=== PATIENT | male | born 1935 | race Caucasian/White ===

== ENCOUNTER 2017-07-02 16:47 | Inpatient (IN) | payer MEDICARE, BC ==
[~2017-07-02] VITALS: Ht 175.3 cm; Wt 88.6 kg
--- NOTE | ~2017-07-02 | EC ---
PATIENT:JENY BRIAN DATE OF SERVICE: 07/02/17 SEX: M MEDICAL RECORD: [id number] DATE OF : 31 LOCATION:[facility] [place] AGE OF PATIENT: 82 ADMISSION DATE: 07/02/17 REFERRING PHYSICIAN: INTERPRETING PHYSICIAN: CLARISA PAEZ MD ECHOCARDIOGRAM REPORT ECHO CHARGES 4 ECHO COMPLETE Date: 07/03 CLINICAL DIAGNOSIS: CHF ECHOCARDIOGRAPHIC MEASUREMENTS (adult normal given) AC root (d.<3.7cm) 43.0 cm LV Septum d (<1.2 cm> 1.54 cm Valve Excursion 2.2 cm LV Septum (systole) 1.9 cm Left Atria (s.<4.0cm> 3.4 cm LVPW d(<1.2cm) 1.5 cm RV (d.<2.3cm) 3.9 cm LVPW (sytole) 1.9 cm LV diastole(<5.6CM) 5.0 cm MV E-F(>70mm/sec) cm LV systole 4.0 cm LVOT Diameter 2.0 cm MV exc.(>10mm) 1.5 cm Est.ejection fraction (50-75%) % DOPPLER: LVIT cm/sec A 121 cm/sec E 105 cm/sec LA cm/sec RVSP 43 mmHg LVOT cm/sec AOP1/2T m/s Asc. Ao 160 cm/sec RVOT 94 cm/sec RA cm/sec PA 137 cm/sec AV Gradient Peak 10.28mmHg AV Mean 4386 mmHg AV Area 2.7 cm MV Gradient Peak 6.99 mmHg MV Mean 3.28 mmHg MV Area cm COMMENTS: Textile Examiner: Laverne CHAVEZ Hearing Consultant: 2 Dr. Bueno TAPE# PACS Pericardial Effusion N DATE OF SERVICE: PROCEDURE: Echocardiogram. FINDINGS: 1. Left ventricular chamber size is within normal limits. Left ventricular systolic function is normal. Overall ejection fraction estimated at 60%. 2. Left atrium is within normal limits at 3.4 cm. Right atrium and right ventricle chamber sizes are moderately dilated. 3. Valvular structures have normal structure and motion. ECHOCARDIOGRAM REPORT [id number] JENY BRIAN 4. Doppler interrogation reveals only mild tricuspid regurgitation, no other valvular insufficiency or stenosis. Pulmonary systolic pressure is estimated at 34 mmHg. 5. No evidence of pericardial effusion or left ventricular thrombus. TRANSINT:[id number] Voice Confirmation ID: [id number] DOCUMENT ID: [id number] CLARISA PAEZ MD at 1057 CC: [id number] DICTATION DATE: 07/03/17 1300 COLLABORATING SUPERVISING PHYSICIAN: 07/03/17 1329 ADM IN [place] [id number] [place] [address]
[2017-07-02 18:16] LABS: ALBUMIN 3.5 g/dL (3.4-5.0); ALKALINE PHOSPHATASE 77 U/L (46-116); ALT (SGPT) 24 U/L (10-68); BILIRUBIN - TOTAL 0.48 mg/dL (0.2-1.3); CALC OSMOLALITY 275 mosm/kg (275-300); CALCIUM 8.4 mg/dL (8.5-10.1); CARBON DIOXIDE 21.5 mmol/L (21.0-32.0); CHLORIDE - SERUM 101 mmol/L (98-107); CREATININE - SERUM 2.2 mg/dL (0.6-1.3); GLUCOSE 99 mg/dL (74-106); POTASSIUM - SERUM 5.1 mmol/L (3.5-5.1); PROTEIN - SERUM 6.5 g/dL (6.4-8.2); SODIUM 136 mmol/L (136-145); UREA NITROGEN 23 mg/dL (7-18); eGFR NON AFRICAN AMERICAN 30 mL/min (90-120)
[2017-07-02 18:22] LABS: BASOPHILS 0.1 % (0-2); EOSINOPHILS 0.4 % (0-7); IMMATURE GRANULOCYTES 5.5 % (0-5); LYMPHOCYTES 4.3 % (15-50); MAGNESIUM - SERUM 1.6 mg/dL (1.8-2.4); MCHC 34.4 g/dL (31.0-37.0); MCV 107.5 fL (80.0-100.0); MEAN PLATELET VOLUME 11.2 fL (7.4-10.4); MONOCYTES 8.2 % (2-11); NEUTROPHILS 81.5 % (40-80); PLATELET COUNT 184 10x3/uL (130-400); PRO BNP 1157 pg/mL (0-450); RDW 14.5 % (11.5-14.5); TROPONIN-I < 0.017 ng/mL (0.000-0.060); WBC 19.7 10x3/uL (4.8-10.8)
[2017-07-02 18:36] LABS: HEMATOCRIT 18.6 % (42.0-54.0); HEMOGLOBIN 6.4 g/dL (13.5-17.5); RBC 1.73 10x6/uL (4.20-6.10)
[2017-07-02 18:37] LABS: APPEARANCE CLEAR (CLEAR); BILIRUBIN NEGATIVE (NEGATIVE); COLOR YELLOW (YELLOW); GLUCOSE NEGATIVE (NEGATIVE); KETONE NEGATIVE (NEGATIVE); NITRITE NEGATIVE (NEGATIVE); PROTEIN TRACE mg/dL (NEGATIVE); UROBILINOGEN NORMAL (NORMAL)
[2017-07-03 05:16] VITALS: BP 105/56; BMI 28.8
[2017-07-03 09:11] VITALS: BP 118/61
[2017-07-03 10:12] VITALS: Ht 175.3 cm; Wt 88.6 kg
[2017-07-03 13:21] VITALS: BP 124/77
[2017-07-03 16:36] LABS: BASOPHILS 0.1 % (0-2); EOSINOPHILS 0.2 % (0-7); IMMATURE GRANULOCYTES 8.7 % (0-5); MCH 31.2 pg (26.0-34.0); MCHC 33.7 g/dL (31.0-37.0); MEAN PLATELET VOLUME 10.3 fL (7.4-10.4); MONOCYTES 6.6 % (2-11); NEUTROPHILS 74.4 % (40-80); PLATELET COUNT 172 10x3/uL (130-400); RDW 27.4 % (11.5-14.5)
[2017-07-03 16:41] LABS: INR 1.57 (0.85-1.17); PROTIME 18.2 SECONDS (11.6-15.0)
[2017-07-03 16:42] LABS: APTT 45.8 SECONDS (22.8-39.4); HEMATOCRIT 24.9 % (42.0-54.0); HEMOGLOBIN 8.4 g/dL (13.5-17.5); MCV 92.6 fL (80.0-100.0); RBC 2.69 10x6/uL (4.20-6.10); WBC 13.3 10x3/uL (4.8-10.8)
[2017-07-03 17:06] LABS: % SATURATION 87 % (15-55); IRON 208 ug/dl (35-150); TOTAL IRON BIND CAPACITY 239 ug/dl (260-445)
[2017-07-03 17:18] LABS: UNSAT IRON BIND CAPACITY 31 ug/dl (150-375)
[2017-07-03 17:21] LABS: ANION GAP 18.4 mmol/L (8-16); CALCIUM 8.1 mg/dL (8.5-10.1); CARBON DIOXIDE 21.7 mmol/L (21.0-32.0); CREATININE - SERUM 2.4 mg/dL (0.6-1.3); MAGNESIUM - SERUM 1.7 mg/dL (1.8-2.4)
[2017-07-03 17:22] LABS: POTASSIUM - SERUM 4.1 mmol/L (3.5-5.1)
[2017-07-03 18:38] VITALS: BP 154/68
[2017-07-03 20:00] VITALS: BP 152/69
[2017-07-03 23:00] LABS: HEMOGLOBIN 8.2 g/dL (13.5-17.5)
[2017-07-04] VITALS: BP 136/59
[2017-07-04 04:00] VITALS: BP 135/54
[2017-07-04 05:31] LABS: BASOPHILS 0 % (0-2); EOSINOPHILS 0.6 % (0-7); HEMATOCRIT 23.6 % (42.0-54.0); IMMATURE GRANULOCYTES 14.4 % (0-5); LYMPHOCYTES 10.3 % (15-50); MCHC 33.9 g/dL (31.0-37.0); MCV 91.5 fL (80.0-100.0); MEAN PLATELET VOLUME 11.4 fL (7.4-10.4); MONOCYTES 8.1 % (2-11); NEUTROPHILS 66.6 % (40-80); PLATELET COUNT 166 10x3/uL (130-400); RBC 2.58 10x6/uL (4.20-6.10); RDW 27.4 % (11.5-14.5)
[2017-07-04 05:32] LABS: WBC 9.6 10x3/uL (4.8-10.8)
[2017-07-04 05:44] LABS: ANION GAP 18.1 mmol/L (8-16); CALCIUM 8.5 mg/dL (8.5-10.1); CARBON DIOXIDE 21.3 mmol/L (21.0-32.0); CREATININE - SERUM 2.1 mg/dL (0.6-1.3); POTASSIUM - SERUM 4.4 mmol/L (3.5-5.1)
[2017-07-04 08:10] VITALS: BP 154/66
[2017-07-04 10:31] LABS: HEMATOCRIT 24.5 % (42.0-54.0); HEMOGLOBIN 8.3 g/dL (13.5-17.5)
[2017-07-04 11:42] VITALS: BP 150/75
[2017-07-04 16:09] VITALS: BP 165/80
[2017-07-04 16:56] LABS: HEMATOCRIT 25.5 % (42.0-54.0); HEMOGLOBIN 8.5 g/dL (13.5-17.5)
[2017-07-04 22:20] VITALS: BP 156/82
[2017-07-04 22:22] LABS: HEMATOCRIT 25.4 % (42.0-54.0); HEMOGLOBIN 8.5 g/dL (13.5-17.5)
[2017-07-05 01:36] VITALS: BP 151/95
[2017-07-05 05:54] VITALS: BP 137/77
[2017-07-05 06:48] LABS: ANION GAP 17.4 mmol/L (8-16); CALCIUM 8.5 mg/dL (8.5-10.1); CARBON DIOXIDE 20.1 mmol/L (21.0-32.0); POTASSIUM - SERUM 4.5 mmol/L (3.5-5.1)
[2017-07-05 07:15] LABS: HEMOGLOBIN 9.2 g/dL (13.5-17.5); MCHC 34.1 g/dL (31.0-37.0); MCV 90.9 fL (80.0-100.0); MEAN PLATELET VOLUME 10.9 fL (7.4-10.4); PLATELET COUNT 144 10x3/uL (130-400); RBC 2.97 10x6/uL (4.20-6.10); RDW 24.9 % (11.5-14.5)
[2017-07-05 08:00] LABS: EOSINOPHILS 1 % (0-7); LYMPHOCYTES 32 % (15-50); MONOCYTES 2 % (2-11); NEUTROPHILS 50 % (40-80); PLATELET ESTIMATE DECREASED
[2017-07-05 08:41] VITALS: BP 159/80
[2017-07-05 09:12] LABS: FOLATE (FOLIC ACID) - SERUM 9.3 ng/mL (>3.0)
[2017-07-05] MEDS ORDERED: LEVAQUIN500 MG PO (10:03)
[2017-07-05] MEDS ORDERED: PROTONIX40 MG PO (10:04)
== END 2017-07-05 11:30 | disposition home or self-care (01) | DRG 811 ==
LOC: D.ER 16:47 → D.MS 18:11 → D.EDHOLD 18:11 → D.MS 20:02
PROVIDERS: Emergency Medicine; Internal Medicine Nephrology
DX: D53.9 Nutritional anemia, unspecified (principal); J18.9 Pneumonia, unspecified organism; N17.9 Acute kidney failure, unspecified; E83.42 Hypomagnesemia; I10 Essential (primary) hypertension; R79.89 Other specified abnormal findings of blood chemistry; I07.1 Rheumatic tricuspid insufficiency

== ENCOUNTER → 2017-08-25 20:01 | Outpatient (CLI) | payer MEDICARE, BC ==
[2017-07-03 10:12] VITALS: BMI 28.8
[~2017-08-25 20:01] MED LIST: LEVAQUIN500 MG PO; PROTONIX40 MG PO
[2017-08-25 20:16] LABS: BASOPHILS 0.2 % (0-2); EOSINOPHILS 0.3 % (0-7); HEMATOCRIT 23.5 % (42.0-54.0); HEMOGLOBIN 7.8 g/dL (13.5-17.5); IMMATURE GRANULOCYTES 35.4 % (0-5); LYMPHOCYTES 13.4 % (15-50); MCH 29.4 pg (26.0-34.0); MCHC 33.2 g/dL (31.0-37.0); MCV 88.7 fL (80.0-100.0); MEAN PLATELET VOLUME 11.4 fL (7.4-10.4); NEUTROPHILS 47.7 % (40-80); RBC 2.65 10x6/uL (4.20-6.10); RDW 20.9 % (11.5-14.5); WBC 8.7 10x3/uL (4.8-10.8)
[2017-08-25 21:17] LABS: PLATELET COUNT 62 10x3/uL (130-400)
[2017-08-25 22:02] LABS: PLATELET ESTIMATE DECREASED
== END | disposition home or self-care (01) ==
LOC: D.LABREF 20:01
PROVIDERS: Family Medicine
DX: D64.9 Anemia, unspecified (principal)